=== PATIENT | female | born 1955 | race American Indian/Alaskan Native ===

== ENCOUNTER 2019-08-30 10:38 | Outpatient (CLI) | payer BC ==
[2019-08-30 11:00] LABS: Hematocrit 40.3 % (30.3-42.9); Hemoglobin 12.8 gm/dl (10.1-14.3); Mean Corpuscular HGB Conc 32 % (30-34); Mean Corpuscular Volume 86 fl (79-97); Platelet Count 201 K/mm3 (140-440); Red Blood Count 4.67 M/mm3 (3.65-5.03); Red Cell Distribution Width 15.4 % (13.2-15.2)
[2019-08-30 11:06] LABS: Bacteria,Urine 1+ /HPF (Negative); Bilirubin,Urine NEG (Negative); Blood,Urine NEG (Negative); Color,Urine Straw (Yellow); Protein,Urine <15 mg/dL mg/dL (Negative); Urobilinogen,Urine < 2.0 mg/dL (<2.0)
[2019-08-30 11:15] LABS: Alanine Aminotransferase 35 units/L (7-56); Albumin 4.4 g/dL (3.9-5); BUN/Creatinine Ratio 14; Blood Urea Nitrogen 10 mg/dL (7-17); Calcium 9.2 mg/dL (8.4-10.2); Chol/HDL Ratio 7.02 %; HDL Cholesterol 34 mg/dL (40-59); Hemolysis Index 2; LDL Cholesterol,Direct 195 mg/dL (50-130)
[2019-08-30 12:12] LABS: Basophils % (Manual) 0 % (0.0-1.8); Total Cells Counted 100
[2019-08-30 12:18] LABS: Burr Cells Rare; Platelet Estimate Consistent w Auto
== END 2019-08-30 10:39 | disposition home or self-care (01) ==
LOC: LAB 10:38
PROVIDERS: ATTEND Family Medicine
DX: I10 Essential (primary) hypertension (principal); E11.9 Type 2 diabetes mellitus without complications; Z02.1 Encounter for pre-employment examination; Z90.710 Acquired absence of both cervix and uterus; E78.49 Other hyperlipidemia
CPT/HCPCS: 36415; 80053; 80061; 81001; 83036; 85007; 85025

== ENCOUNTER 2019-09-06 11:25 | Outpatient (CLI) | payer BC ==
--- NOTE | 2019-09-06 15:01 | Cat Scan Report ---
CT ABDOMEN AND PELVIS WITH CONTRAST HISTORY: R10.12 EPIGASTRIC PAIN/K59.09 OTHER CONSTIPATION COMPARISON: None. TECHNIQUE: Axial CT images were obtained through the abdomen and pelvis after 100 cc of Omnipaque 300 intravenously. Sagittal and coronal reformatted images. All CT scans at this location are performed using CT dose reduction for ALARA by means of automated exposure control. FINDINGS: CT ABDOMEN: Lung Bases: Clear. Liver: Mild diffuse fatty infiltration is identified throughout the liver. Biliary: One or 2 tiny calcified gallstones are identified in the gallbladder. No biliary dilatation or inflammation. Spleen: No significant abnormality. Unenlarged. Pancreas: No significant abnormality. Adrenals: No significant abnormality. Kidneys: The left kidney is unremarkable. There are 4 cysts in the right kidney measuring 1 cm, 1 cm, 2 cm and 7.5 cm. Lymphatics: No lymphadenopathy. Vasculature: No significant abnormality. Bowel/Peritoneum: No significant abnormality. No free air. No free fluid. Normal appendix. CT PELVIS: : Hysterectomy changes are suspected. The ovaries are normal. The bladder and distal ureters are wi thin normal limits. Osseous Structures: No significant abnormality. Additional Findings: A small umbilical hernia containing fat is identified. A second small ventral wa ll defect is identified inferior to the umbilicus that also contains fat. IMPRESSION: No acute inflammatory process. Mild hepatic steatosis. Tiny gallstones. Right renal cysts. Small ventral wall defects as described containing fat. Hysterectomy. Signer Name: Srinath Mead Jr, MD Signed: 09/06/2019 2:57 PM Workstation Name: [id number]
== END 2019-09-06 11:26 | disposition home or self-care (01) ==
LOC: CT 11:25
PROVIDERS: ATTEND Family Medicine
DX: K59.09 Other constipation (principal); K76.0 Fatty (change of) liver, not elsewhere classified; N28.1 Cyst of kidney, acquired; K80.20 Calculus of gallbladder without cholecystitis without obstruction
CPT/HCPCS: 74177

== ENCOUNTER 2019-09-13 08:44 | Outpatient (CLI) | payer BC ==
--- NOTE | 2019-09-13 12:53 | Mammography Report ---
DIGITAL SCREENING MAMMOGRAM WITH CAD, 09/13/2019 INDICATION: Routine screening mammography. TECHNIQUE: Digital bilateral 2D mammography was obtained in the craniocaudal and mediolateral obliq ue projections. This examination was interpreted with the benefit of Computer-Aided Detection analysi s. COMPARISON: None available. She has had a previous mammogram at [facility]. FINDINGS: Breast Density: The breasts are heterogeneously dense, which may obscure small masses. There is no evidence of dominant mass, suspicious calcifications or architectural distortion in eithe r breast. IMPRESSION: No mammographic evidence of malignancy. Follow up recommendation: Routine yearly BI-RADS Category 1: Negative. A "normal" or negative report should not discourage follow up or biopsy of a clinically significant f inding. A written summary of these findings will be mailed to the patient. The patient will be entered into a mammography reporting system which will generate a reminder letter for the patient's next appointmen t at the appropriate interval. The [employer] recommends yearly mammograms starting at age 40 and continuing as l alfred as a woman is in good health. Breast MRI is recommended for women with an approximate 20-25% or greater lifetime risk of breast cancer, including women with a strong family history of breast or ova ashli cancer or who have been treated for Hodgkin's disease. Signer Name: Marcello Martínez MD Signed: 09/13/2019 12:49 PM Workstation Name: [id number]
== END 2019-09-13 08:45 | disposition home or self-care (01) ==
LOC: MAMMO 08:44
PROVIDERS: ATTEND Family Medicine
DX: Z12.31 Encounter for screening mammogram for malignant neoplasm of breast (principal)
CPT/HCPCS: 77067

== ENCOUNTER 2019-09-15 09:39 | Outpatient (CLI) | payer BC ==
[2019-09-15] MEDS ORDERED: SINCALIDE 5 MCG VIAL IV ONE ×2 (11:07)
[2019-09-15] MEDS ORDERED: WATER FOR INJ Sterile (PF) 10 ML ONE (11:08)
--- NOTE | 2019-09-15 12:01 | Nuclear Medicine Report ---
HIDA scan INDICATION: PT HAS GALLSTONES TECHNIQUE: 5 mCi of Tc-99m mebrofenin was injected IV per protocol. 0.9 micrograms of CCK was also injected. Multiple planar images in the region of the liver were then obtained. FINDINGS: There is prompt radiotracer uptake identified within the liver. The gallbladder was visuali zed at 30 min. There is normal GI excretion. The gallbladder ejection fraction was measured at 28 % (35% or greater is considered normal). CCK injection caused new abdominal pain IMPRESSION: 1. No evidence of biliary obstruction. 2. Low gallbladder ejection fraction. Signer Name: Unruly De Leon MD Signed: 09/15/2019 11:56 AM Workstation Name: [id number]
== END 2019-09-15 09:40 | disposition home or self-care (01) ==
LOC: NM 09:39
PROVIDERS: ATTEND Family Medicine
DX: K80.80 Other cholelithiasis without obstruction (principal); Z88.5 Allergy status to narcotic agent
CPT/HCPCS: 78227; A9537; J2805

== ENCOUNTER 2019-09-18 08:54 | Day surgery (SDC) | payer BC ==
--- NOTE | 2019-09-18 09:58 | Anesthesia Day of Surgery ---
Anesthesia Day of Surgery - Day of Surgery Patient Examined: Yes Patient H&P Reviewed: Yes Patient is NPO: Yes
--- NOTE | 2019-09-18 09:58 | Anesthesia Consultation ---
Anesthesia Consult and Med Hx Date of service: 09/18/19 - Airway Anesthetic Teeth Evaluation: Good ROM Head & Neck: Adequate Mental/Hyoid Distance: Adequate Mallampati Class: Class II Intubation Access Assessment: Good - Pulmonary Exam CTA: Yes - Cardiac Exam Cardiac Exam: RRR - Pre-Operative Health Status ASA Pre-Surgery Classification: ASA3 Proposed Anesthetic Plan: MAC - Cardiovascular System Hx Hypertension: Yes - Endocrine Hx Non-Insulin Dependent Diabetes: Yes - Additional Comments Anesthesia Medical History Comments: HTN, DM for MAC
[2019-09-18] MEDS ORDERED: SODIUM CHLORIDE 0.9% 1000 ML 1,000 ML IV SCH (10:00)
[2019-09-18] MEDS ORDERED: LIDOCAINE MPF (2%) 20 MG/1 ML VIAL 5 ML ONE (10:30)
[2019-09-18] MEDS ORDERED: PROPOFOL 200 MG/20 ML VIAL IV ONE ×2 (10:59)
--- NOTE | 2019-09-18 11:35 | Operative Report ---
PROCEDURE: Colonoscopy with biopsy. INDICATIONS: This is a 64-year-old -[place]ian female with a prior history of colon polyp, underlying history of diabetes mellitus, hypertension and prior history of hysterectomy. Colonoscopy was done as part of colon polyp screening. Last colonoscopy was done several years ago. DESCRIPTION OF PROCEDURE: The procedure was done after getting informed consent with MAC anesthesia. Initial rectal exam was unremarkable. Instrument was passed through the rectum onto the cecum, which was identified with ileocecal valve and the appendiceal orifice. The terminal ileum was intubated, showed normal mucosa. Visualization was fair, especially in the proximal colon where it was washed with copious amounts of water. No significant pathology was noted in the cecum, ascending colon, transverse colon, descending colon and sigmoid. The cecum was also visualized in the retroverted view. In the rectosigmoid area, there were 2 small possibly hyperplastic polyps noted that were removed by cold biopsy and the rectum also showed some mild to moderate internal hemorrhoid on the retroverted view. ASSESSMENT: Colon polyp screening. Two small rectosigmoid, possibly hyperplastic polyps removed. Mild to moderate internal hemorrhoid. No diverticular disease. There was minimal bleeding from the polypectomy sites and no complications associated with the procedure. The patient will be asked to resume previous home medication and follow up in the office in 1-2 weeks' time and to avoid aspirin and aspirin-related products and anticoagulants for the next 4 days. The procedure was done in the GI lab with assistance of the GI lab team, which included BRUCE Parker and technology consultant and with assistance of anesthesia. JOB# [id number] FRANCY/LETI
--- NOTE | 2019-09-18 11:40 | History and Physical Report ---
HISTORY OF PRESENT ILLNESS: This is a 64-year-old -[place]ian female who has an underlying history of diabetes mellitus, hypertension, and prior history of a hysterectomy. She does have a family history of cancer. The patient's aunt had cancer. She is here for evaluation for as part of colon polyp screening. Last colonoscopy was said to have been 6 years ago. SOCIAL HISTORY: No history of smoking or alcohol use. No cardiac issues. She has had her flu shots. ALLERGIES: She has a history of allergy to CODEINE. MEDICATIONS: Include amlodipine, metformin, glimepiride, Motrin, and milk thistle. PHYSICAL EXAMINATION: VITAL SIGNS: She is afebrile, blood pressure 127/78, pulse is 75, height is 5 feet 1-1/2 inches, weight is 209 pounds. HEENT: Shows no JVD. LUNGS: Clear to auscultation. CARDIOVASCULAR: Normal. ABDOMEN: Soft. Bowel sounds present. NEUROLOGIC: The patient is otherwise alert and oriented. ASSESSMENT: Colon polyp screening; past history of colon polyps; family history of cancer, the patient's aunt has had cancer; diabetes mellitus; hypertension; status post hysterectomy. PLAN: To do a colonoscopy at [facility] on 09/18/2019. JOB# [id number] FRANCY/LETI
[2019-09-18 13:21] VITALS: BP 122/82
--- NOTE | 2019-09-18 13:37 | Post Anesthesia Evaluation ---
- Post Anesthesia Evaluation Patient Participated: Yes Airway Patent: Yes Stable Respiratory Function: Yes Nausea/Vomiting: No Temp > 96.8F: Yes Pain Manageable: Yes Adequeate Hydration: Yes Anesthesia Complications: No Block Receding Appropriately: Not Applicable Patient on Ventilator: No
== END 2019-09-18 08:55 | disposition home or self-care (01) ==
LOC: GIO 08:54
DX: Z12.11 Encounter for screening for malignant neoplasm of colon (principal); D12.7 Benign neoplasm of rectosigmoid junction; K64.8 Other hemorrhoids; I10 Essential (primary) hypertension; E11.9 Type 2 diabetes mellitus without complications; Z90.710 Acquired absence of both cervix and uterus; Z88.5 Allergy status to narcotic agent; Z79.84 Long term (current) use of oral hypoglycemic drugs; Z79.899 Other long term (current) drug therapy
CPT/HCPCS: 45380; 82962; 88305; J2704; J7030

== ENCOUNTER 2019-10-06 09:13 | Emergency (ER) | payer BC, OTHER ==
[2019-10-06 09:23] VITALS: BP 132/80
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
[2019-10-06] MEDS ORDERED: IBUPROFEN 800 MG TAB PO ONE (09:59)
[2019-10-06] MEDS ORDERED: CYCLOBENZAPRINE 10 MG TAB PO ONE (09:59)
== END 2019-10-06 10:34 | disposition home or self-care (01) ==
LOC: ED 09:13
DX: R07.89 Other chest pain (principal); M79.10 Myalgia, unspecified site; I10 Essential (primary) hypertension; E11.9 Type 2 diabetes mellitus without complications; E78.00 Pure hypercholesterolemia, unspecified; Z90.710 Acquired absence of both cervix and uterus; Z79.899 Other long term (current) drug therapy; Z79.84 Long term (current) use of oral hypoglycemic drugs; Z88.5 Allergy status to narcotic agent; V49.49XA Driver injured in collision with other motor vehicles in traffic accident, initial encounter; Y93.89 Activity, other specified; Y92.410 Unspecified street and highway as the place of occurrence of the external cause; Y99.8 Other external cause status

== ENCOUNTER 2020-03-22 11:45 | Outpatient (CLI) | payer BC ==
[2020-03-22 12:16] LABS: Hematocrit 41.6 % (30.3-42.9); Hemoglobin 13.3 gm/dl (10.1-14.3); Mean Corpuscular HGB Conc 32 % (30-34); Mean Corpuscular Volume 85 fl (79-97); Platelet Count 230 K/mm3 (140-440); Red Blood Count 4.92 M/mm3 (3.65-5.03); Red Cell Distribution Width 15.2 % (13.2-15.2)
[2020-03-22 12:25] LABS: Alanine Aminotransferase 35 units/L (7-56); Albumin 4.3 g/dL (3.9-5); BUN/Creatinine Ratio 20; Blood Urea Nitrogen 14 mg/dL (7-17); Calcium 9.4 mg/dL (8.4-10.2); Chol/HDL Ratio 7.09 %; HDL Cholesterol 41 mg/dL (40-59); Hemolysis Index 1; LDL Cholesterol,Direct 231 mg/dL (50-130)
== END 2020-03-22 11:46 | disposition home or self-care (01) ==
LOC: LAB 11:45
PROVIDERS: ATTEND Internal Medicine
DX: E11.9 Type 2 diabetes mellitus without complications (principal)
CPT/HCPCS: 36415; 80053; 80061; 83036; 85027

== ENCOUNTER 2020-03-26 13:49 | Outpatient (CLI) | payer BC ==
--- NOTE | 2020-03-26 14:34 | XRay Report ---
LEFT KNEE 3 VIEWS INDICATION: LEFT KNEE PAIN. COMPARISON: None. IMPRESSION: Normal bone mineralization. Mild to moderate tricompartmental osteoarthritic changes are identified. The medial compartment is most affected. No acute osseous abnormality or soft tissue ab normality is identified. Signer Name: Srinath Mead Jr, MD Signed: 03/26/2020 2:29 PM Workstation Name: [id number]
== END 2020-03-26 13:50 | disposition home or self-care (01) ==
LOC: XRAY 13:49
PROVIDERS: ATTEND Orthopaedic Surgery
DX: M17.12 Unilateral primary osteoarthritis, left knee (principal)

== ENCOUNTER 2020-04-04 11:30 | Outpatient (CLI) | payer BC ==
--- NOTE | 2020-04-04 15:30 | Magnetic Resonance Report ---
MRI RIGHT KNEE WITHOUT CONTRAST INDICATION / CLINICAL INFORMATION: MAIN: RIGHT KNEE PAIN, SWELLING, STIFFNESS. TECHNIQUE: Multiplanar, multisequence MR images were obtained. No contrast used. COMPARISON: None available. FINDINGS: ACL: Mucoid degeneration. The ligament is intact. PCL: No significant abnormality. DISTAL QUADRICEPS TENDON: No significant abnormality. PATELLAR TENDON: No significant abnormality. MEDIAL MENISCUS: Predominantly horizontal tear in the horn of the medial meniscus extending to the ti bial articular surface. The meniscal body is extruded. LATERAL MENISCUS: No significant abnormality. POSTEROLATERAL CORNER: No significant abnormality. MCL: No significant abnormality. LCL: No significant abnormality. DISTAL IT BAND: No significant abnormality. PATELLOFEMORAL ALIGNMENT: - PATELLA JED vs. BAJA: None. - PATELLAR TRANSLATION: Lateral -- Mild. - PATELLAR TILT: Abnormal lateral tilt. - TT-TG DISTANCE: 1.7 cm (normal <= 1.5 cm) - TROCHLEAR DYSPLASIA: None. - FAT PAD EDEMA: None. - MPFL: No significant abnormality. ARTICULAR CARTILAGE: Advanced patellar chondrosis with full-thickness loss across the lateral facet a t the base moderate chondrosis in the tibiofemoral compartments. JOINT SPACE: Small effusion. No significant popliteal cyst. No intra-articular bodies. BONES: No significant bone marrow edema. No fracture. No osseous lesion. There are small femoral, tib ial and patellar osteophytes. SOFT TISSUES: No significant abnormality. ADDITIONAL FINDINGS: None. IMPRESSION: 1. Moderate tricompartmental osteoarthrosis with small osteophytes and a small effusion. 2. Degenerative tear of the posterior horn of the medial meniscus. Report dictated by: Patel Iniguez MD Report dictated on: 04/04/2020 1:54 PM I have reviewed the images, agree with this report, and edited this report as needed. Signer Name: Unruly De Leon MD Signed: 04/04/2020 3:25 PM Workstation Name: [id number]
== END 2020-04-04 11:31 | disposition home or self-care (01) ==
LOC: MRI 11:30
PROVIDERS: ATTEND Orthopaedic Surgery
DX: S83.241A Other tear of medial meniscus, current injury, right knee, initial encounter (principal); M25.461 Effusion, right knee; M25.761 Osteophyte, right knee; M17.11 Unilateral primary osteoarthritis, right knee; X58.XXXA Exposure to other specified factors, initial encounter; Y93.89 Activity, other specified; Y92.89 Other specified places as the place of occurrence of the external cause; Y99.8 Other external cause status
CPT/HCPCS: 73721

== ENCOUNTER 2020-08-27 10:10 | Outpatient (CLI) | payer BC ==
--- NOTE | 2020-08-27 13:19 | Ultrasound Report ---
US renal BILAT INDICATION / CLINICAL INFORMATION: RENAL CYST,RIGHT. COMPARISON: None available. FINDINGS: 3 cysts are seen in the right kidney with the largest measuring 8 cm in diameter. No focal abnormalit y is seen on the left. There is no evidence of hydronephrosis. The bladder is normal. The liver is ec hogenic consistent with diffuse fatty infiltration. IMPRESSION: 1. 3 right renal cysts with the largest measuring 8 cm in diameter. 2. Diffuse fatty infiltration in the liver without focal abnormality Signer Name: Aubrey Brock MD FACR Signed: 08/27/2020 1:14 PM Workstation Name: [id number]
== END 2020-08-27 10:11 | disposition home or self-care (01) ==
LOC: US 10:10
PROVIDERS: ATTEND Family Medicine
DX: N28.1 Cyst of kidney, acquired (principal); K76.0 Fatty (change of) liver, not elsewhere classified
CPT/HCPCS: 76770

== ENCOUNTER 2020-12-12 10:17 | Outpatient (CLI) | payer BC ==
[2020-12-12 12:54] LABS: Basophils % (Auto) 0.5 % (0.0-1.8); Eosinophils # (Auto) 0.2 K/mm3 (0.0-0.4); Eosinophils % (Auto) 3.8 % (0.0-4.3); Hematocrit 41.8 % (30.3-42.9); Hemoglobin 13.4 gm/dl (10.1-14.3); Lymphocytes # (Auto) 1.5 K/mm3 (1.2-5.4); Mean Corpuscular HGB Conc 32 % (30-34); Mean Corpuscular Volume 87 fl (79-97); Monocytes # (Auto) 0.4 K/mm3 (0.0-0.8); Monocytes % (Auto) 8.5 % (0.0-7.3); Platelet Count 198 K/mm3 (140-440); Red Blood Count 4.82 M/mm3 (3.65-5.03); Red Cell Distribution Width 15.1 % (13.2-15.2)
[2020-12-12 13:15] LABS: Alanine Aminotransferase 32 units/L (7-56); Albumin 4.4 g/dL (3.9-5); Blood Urea Nitrogen 7 mg/dL (7-17); Calcium 9.4 mg/dL (8.4-10.2); Chol/HDL Ratio 4.55 %; HDL Cholesterol 40 mg/dL (40-59); Hemolysis Index 5; LDL Cholesterol,Direct 135 mg/dL (50-130)
[2020-12-12 13:17] LABS: BUN/Creatinine Ratio 10
--- NOTE | 2020-12-12 13:26 | XRay Report ---
CERVICAL SPINE 5 VIEWS INDICATION / CLINICAL INFORMATION: CERVICALGIA. COMPARISON: None available. FINDINGS: Mild degenerative change. No other significant skeletal abnormality. Alignment is normal. Signer Name: Aubrey Brock MD FACR Signed: 12/12/2020 1:22 PM Workstation Name: [id number]
--- NOTE | 2020-12-12 13:27 | XRay Report ---
LUMBAR SPINE 5 VIEWS INDICATION / CLINICAL INFORMATION: LOWER BACK PAIN. COMPARISON: None available. FINDINGS: No significant skeletal abnormality. Alignment is normal. Signer Name: Aubrey Brock MD FACCarmen Signed: 12/12/2020 1:23 PM Workstation Name: [id number]
== END 2020-12-12 10:18 | disposition home or self-care (01) ==
LOC: XRAY 10:17
PROVIDERS: ATTEND Orthopaedic Surgery
DX: M47.812 Spondylosis without myelopathy or radiculopathy, cervical region (principal); M54.5 Low back pain
CPT/HCPCS: 36415; 72050; 72110; 80053; 80061; 83036; 84443; 85025

== ENCOUNTER 2021-01-02 09:19 | Day surgery (SDC) | payer BC ==
[2021-01-02 10:54] VITALS: BP 135/89
[2021-01-02] MEDS ORDERED: BUPIVACAINE/PF (0.5%) 5 MG/1 ML 30 ML VIAL INFILTRATI ONE ×2 (11:48→12:45)
[2021-01-02] MEDS ORDERED: LIDOCAINE (1%) 10 MG/1 ML VIAL 20 ML MDV ONE (11:49)
[2021-01-02] MEDS ORDERED: LIDOCAINE (1%) 10 MG/1 ML VIAL 20 ML MDV INFILTRATI ONE (12:46)
--- NOTE | 2021-01-02 14:29 | XRay Report ---
INTRAOPERATIVE FLUOROSCOPY INDICATION / CLINICAL INFORMATION: LT KNEE PAIN. TECHNIQUE: Intraoperative spot images were obtained during the procedure. FINDINGS: Intraoperative fluoroscopy images for left knee injection. See operative/procedure note by performing physician for full details. Fluoroscopy Time: 20 seconds. Fluoroscopy Images: 2. Signer Name: Jose Chandler MD Signed: 01/02/2021 2:25 PM Workstation Name: [id number]
--- NOTE | 2021-01-16 15:09 | Procedure Note ---
Date of procedure: 01/02/21 Pre-op diagnosis: Left knee pain Post-op diagnosis: same Procedure: [Left] Geniculate Nerve Block under C-arm fluroscopy procedure The patient taken to the operating room where he was place on the table supine with padded triangular pad placed along the potileal fossa. The [left] knee prepped and draped in usual sterile fashion. 22-gauge spinal needle used to locate areas for injection, the medial and lateral supracondylar ridges, 2 cm proximal to the superior pole of the patella as well as the medial border of the proximal tibia. These areas were anesthized using lidocaine 1% followed by placement of spinal needle near the medial, and lateral geniculate nerves. A mixture of marcaine and lidocaine injected into the deeper structures. There were no complications noted and he tolerated wel Anesthesia: local Surgeon: ESPERANZA MAYER Estimated blood loss: minimal Pathology: none Condition: stable Disposition: observation
--- NOTE | 2021-01-16 15:13 | Procedure Note ---
Date of procedure: 01/16/21 Pre-op diagnosis: Left knee pain Post-op diagnosis: same Procedure: Geniculate nerve radiofrequency ablation [left] knee Procedure The patient was brought to the OR and placed in the OR table supine position patient was Given IV and was masked the procedure following this the patient's [left] knee was prepped and draped in the routine sterile manner. A timeout procedure was done to identify the patient and the correct operative site. Under C-arm visualization the skin was anesthetized with the 1% lidocaine at both the medial and lateral suprapatellar regions as well as the proximal portion of the medial tibial metaphysis. Following this the the introducers radiofrequency ablator introducer probes were inserted into the distal femoral metaphysis close to the bone and midway along the sagittal plane as well as along the proximal tibial metaphysis to be appropriate place simultaneously following this following this the probe were checked for full motor nerve function there did not appear to be any next the radiofrequency ablator was turned on and the nerves were ablated to a temperature of 60C for approximately 2-1/2 minutes each. A mixture of Depo-Medrol and lidocaine was then injected into each location to help with postoperative pain and inflammation. The patient tolerated the procedure there were no complications he was then taken to postanesthesia recovery in a stable condition Anesthesia: MAC Surgeon: ESPERANZA MAYER Estimated blood loss: minimal Pathology: none Condition: stable Disposition: PACU
== END 2021-01-02 09:20 | disposition home or self-care (01) ==
LOC: OR 09:19
PROVIDERS: ATTEND Orthopaedic Surgery
DX: M25.562 Pain in left knee (principal); G43.909 Migraine, unspecified, not intractable, without status migrainosus; I10 Essential (primary) hypertension; E78.00 Pure hypercholesterolemia, unspecified; K21.9 Gastro-esophageal reflux disease without esophagitis; M19.90 Unspecified osteoarthritis, unspecified site; E11.9 Type 2 diabetes mellitus without complications; Z88.5 Allergy status to narcotic agent; Z79.899 Other long term (current) drug therapy; Z79.84 Long term (current) use of oral hypoglycemic drugs; Z98.49 Cataract extraction status, unspecified eye; Z90.49 Acquired absence of other specified parts of digestive tract; Z90.710 Acquired absence of both cervix and uterus; Z98.890 Other specified postprocedural states
CPT/HCPCS: 82962

== ENCOUNTER 2021-01-16 13:34 | Day surgery (SDC) | payer BC ==
[2021-01-13 09:36] LABS: Hematocrit 40.6 % (30.3-42.9); Hemoglobin 13.1 gm/dl (10.1-14.3); Mean Corpuscular HGB Conc 32 % (30-34); Mean Corpuscular Volume 85 fl (79-97); Platelet Count 185 K/mm3 (140-440); Red Blood Count 4.76 M/mm3 (3.65-5.03); Red Cell Distribution Width 15.5 % (13.2-15.2)
[2021-01-13 09:52] LABS: BUN/Creatinine Ratio 13; Blood Urea Nitrogen 8 mg/dL (7-17); Calcium 9.4 mg/dL (8.4-10.2); Hemolysis Index 0
--- NOTE | 2021-01-16 09:36 | Anesthesia Day of Surgery ---
Anesthesia Day of Surgery - Day of Surgery Patient Examined: Yes Patient H&P Reviewed: Yes Patient is NPO: Yes
--- NOTE | 2021-01-16 09:36 | Anesthesia Consultation ---
Anesthesia Consult and Med Hx Date of service: 01/16/21 - Airway Anesthetic Teeth Evaluation: Good ROM Head & Neck: Adequate Mental/Hyoid Distance: Adequate Mallampati Class: Class III Intubation Access Assessment: Possibly Difficult - Pre-Operative Health Status ASA Pre-Surgery Classification: ASA2 Proposed Anesthetic Plan: General - Pulmonary Hx Smoking: Yes (1/2PPPD) Hx Respiratory Symptoms: No - Cardiovascular System Hx Hypertension: No (previously on antihypertensives for raynauds; self d/c'd meds) - Central Nervous System CVA: No Hx Back Pain: Yes - Endocrine Hx Renal Disease: No Hx Liver Disease: No Hx Insulin Dependent Diabetes: No Hx Non-Insulin Dependent Diabetes: No Hx Thyroid Disease: No - Other Systems Hx Obesity: Yes (BMI 38) - Additional Comments Anesthesia Medical History Comments: No hx anesthetic complications.
--- NOTE | 2021-01-16 12:55 | Anesthesia Consultation ---
Anesthesia Consult and Med Hx Date of service: 01/16/21 - Airway Anesthetic Teeth Evaluation: Poor (#6 loose), Partials ROM Head & Neck: Adequate Mental/Hyoid Distance: Adequate Mallampati Class: Class III Intubation Access Assessment: Possibly Difficult - Pre-Operative Health Status ASA Pre-Surgery Classification: ASA3 Proposed Anesthetic Plan: MAC - Pulmonary Hx Smoking: No Hx Respiratory Symptoms: No Hx Pneumonia: Yes (remote hx PNA with L lung scarring) Hx Sleep Apnea: No (no dx but patient suspects SREE) - Cardiovascular System Hx Hypertension: Yes Hx Heart Attack/AMI: No Hx Percutaneous Transluminal Coronary Angioplasty (PTCA): No - Central Nervous System CVA: No Hx Back Pain: Yes - Endocrine Hx Renal Disease: No Hx Liver Disease: No Hx Non-Insulin Dependent Diabetes: Yes Hx Thyroid Disease: No - Other Systems Hx Obesity: Yes (BMI 38)
--- NOTE | 2021-01-16 12:56 | Anesthesia Day of Surgery ---
Anesthesia Day of Surgery - Day of Surgery Patient Examined: Yes Patient H&P Reviewed: Yes Patient is NPO: Yes
[~2021-01-16 13:34] MED LIST: HYDROcodone/ACETAMINOPHEN 5-325 MG TAB PO PRN; LACTATED RINGERS 1,000 ML IV SCH; MIDAZOLAM 2 MG/2 ML INJ IV NR; ONDANSETRON 4 MG/2 ML INJ IV PRN; fentaNYL 100 MCG/2 ML INJ IV PRN
[2021-01-16] MEDS ORDERED: LIDOCAINE MPF (2%) 20 MG/1 ML VIAL 5 ML ONE (14:03)
[2021-01-16] MEDS ORDERED: ONDANSETRON 4 MG/2 ML INJ ONE (14:03)
[2021-01-16] MEDS ORDERED: fentaNYL 100 MCG/2 ML INJ ONE (14:04)
[2021-01-16] MEDS ORDERED: propofoL 200 MG/20 ML VIAL IV ONE ×2 (14:04→14:42)
[2021-01-16] MEDS ORDERED: BUPIVACAINE/PF (0.5%) 5 MG/1 ML 30 ML VIAL INFILTRATI ONE (14:07)
[2021-01-16] MEDS ORDERED: LIDOCAINE (1%) 10 MG/1 ML VIAL 20 ML MDV ONE (14:07)
[2021-01-16] MEDS ORDERED: methylPREDNISolone ACETATE 40 MG/1 ML INJ ONE ×2 (14:08→14:50)
[2021-01-16] MEDS ORDERED: KETAMINE/STERILE WATER 50 MG/ML SYRINGE ONE (14:25)
[2021-01-16] MEDS ORDERED: LIDOCAINE (1%) 10 MG/1 ML VIAL 20 ML MDV INFILTRATI ONE (14:44)
[2021-01-16] MEDS ORDERED: BUPIVACAINE/PF (0.25%) 2.5 MG/ML 30 ML VIAL INFILTRATI ONE ×2 (14:52→14:56)
[2021-01-16] MEDS ORDERED: methylPREDNISolone ACETATE 40 MG/1 ML INJ INTRA-ARTI ONE ×2 (14:52→14:57)
[2021-01-16] MEDS ORDERED: ALBUTEROL 2.5 MG/3 ML NEBU IH ONE ×2 (15:26→15:28)
[2021-01-16] MEDS ORDERED: SODIUM CHLORIDE FOR INHALATION NEBU 3 ML ONE (15:26)
--- NOTE | 2021-01-16 15:45 | XRay Report ---
LEFT KNEE 3 VIEWS 1330 INDICATION: Intraoperative COMPARISON: 01/02/2021 FINDINGS: 3 C-arm views are presented during a knee injection showing needles medially and laterally at the level of the distal femoral metaphysis and another just medial to the proximal tibial metaphys is, all with anterior entry. A subsequent image shows a needle projecting over the midportion of the distal femoral diaphysis and the lateral thigh needle is still in place. Fluoroscopy time: 23 seconds Signer Name: Terry Lechuga MD Signed: 01/16/2021 3:40 PM Workstation Name: [email or web address]
[2021-01-16 16:13] VITALS: BP 130/71
[2021-01-16] MEDS ORDERED: HYDROcodone/ACETAMINOPHEN 5-325 MG TAB PO PRN (16:20)
--- NOTE | 2021-01-16 16:35 | Post Anesthesia Evaluation ---
- Post Anesthesia Evaluation Patient Participated: Yes Airway Patent: Yes Stable Respiratory Function: Yes Nausea/Vomiting: No Temp > 96.8F: Yes Pain Manageable: Yes Adequeate Hydration: Yes Anesthesia Complications: No Other Comments: Coughing on arrival to PACU with normal SpO2. Resolved with albuterol neb.
== END 2021-01-16 16:50 | disposition home or self-care (01) ==
LOC: MERGE 13:34 → OR 13:34
PROVIDERS: ATTEND Orthopaedic Surgery
DX: M25.562 Pain in left knee (principal); Z20.822 Contact with and (suspected) exposure to COVID-19; E78.00 Pure hypercholesterolemia, unspecified; I10 Essential (primary) hypertension; K21.9 Gastro-esophageal reflux disease without esophagitis; M19.90 Unspecified osteoarthritis, unspecified site; E11.9 Type 2 diabetes mellitus without complications; Z98.890 Other specified postprocedural states; Z79.899 Other long term (current) drug therapy; Z88.5 Allergy status to narcotic agent; Z79.84 Long term (current) use of oral hypoglycemic drugs; Z98.49 Cataract extraction status, unspecified eye; Z87.01 Personal history of pneumonia (recurrent); Z90.49 Acquired absence of other specified parts of digestive tract; Z90.710 Acquired absence of both cervix and uterus; Z87.440 Personal history of urinary (tract) infections
CPT/HCPCS: 36415; 64624; 73560; 80048; 82962; 85027; A4649; J1030; J2250; J2405; J2704; J3010; J3490; J7120; U0003

== ENCOUNTER 2021-03-16 12:55 | Emergency (ER) | payer BC ==
--- NOTE | 2021-03-16 14:56 | Event Note ---
ED Screening Note Date of service: 03/16/21 Time: 14:55 ED Screening Note: 66-year-old female presents to the ER today with complaints of right flank pain with associated nausea and vomiting. Onset last night. Past medical history significant for diabetes, hypertension, hyperlipidemia left ventricular hypertrophy, migraines This initial assessment/diagnostic orders/clinical plan/treatment(s) is/are subject to change based on patients health status, clinical progression and re- assessment by fellow clinical providers in the ED. Further treatment and workup at subsequent clinical providers discretion. Patient/guardian urged not to elope from the ED as their condition may be serious if not clinically assessed and managed. Initial orders include: Abdominal pain order set
[2021-03-16 15:51] LABS: Basophils % (Auto) 0.5 % (0.0-1.8); Eosinophils % (Auto) 0.2 % (0.0-4.3); Hematocrit 40.1 % (30.3-42.9); Lymphocytes # (Auto) 2.7 K/mm3 (1.2-5.4); Lymphocytes % (Auto) 29.9 % (13.4-35.0); Mean Corpuscular HGB Conc 33 % (30-34); Mean Corpuscular Volume 86 fl (79-97); Monocytes # (Auto) 0.4 K/mm3 (0.0-0.8); Monocytes % (Auto) 4.5 % (0.0-7.3); Platelet Count 216 K/mm3 (140-440); Red Blood Count 4.65 M/mm3 (3.65-5.03); Red Cell Distribution Width 15.3 % (13.2-15.2)
[2021-03-16 15:57] LABS: Bilirubin,Urine NEG (Negative); Blood,Urine NEG (Negative); Color,Urine Yellow (Yellow); Mucus,Urine FEW /HPF; Protein,Urine <15 mg/dL mg/dL (Negative); Urobilinogen,Urine < 2.0 mg/dL (<2.0)
[2021-03-16 16:16] LABS: Alanine Aminotransferase 26 units/L (7-56); Albumin 4.4 g/dL (3.9-5); BUN/Creatinine Ratio 13; Blood Urea Nitrogen 8 mg/dL (7-17); Calcium 9.1 mg/dL (8.4-10.2); Hemolysis Index 3
[2021-03-16] MEDS ORDERED: ACETAMINOPHEN 500 MG TAB PO ONE (19:03)
[2021-03-16] MEDS ORDERED: KETOROLAC 30 MG/1 ML INJ IM ONE (23:58)
--- NOTE | 2021-03-17 00:01 | Emergency Department Report ---
HPI - General Chief Complaint: Abdominal Pain Time Seen by Provider: 03/16/21 14:30 - HPI HPI: This is a 66-year-old -Citizen Of [place] female presents to the emergency department with a complaint of right flank and right middle to lower back pain that has been going on since last night. At one point the patient says that the pain was so intense that it caused her to have some vomiting. She denies any current nausea. She has taken multiple doses of Tylenol for her symptoms without any relief. At the time of my examination she says the pain is 5 out of 10 in intensity. It does worsen with certain movements of her body/torso. No known alleviating factors. She admits to some increased urination but denies any dysuria. She denies any fever, vaginal bleeding or discharge, constipation or diarrhea, rash, chest pain or shortness of breath. No recent travel or sick contacts at home. She has a past medical history that includes hypertension, diabetes, migraines, renal cysts and high cholesterol. Her primary care physician is a Dr. Elkins, but she has not seen them regarding her current symptoms. ED Past Medical Hx - Past Medical History Previous Medical History?: Yes Hx Hypertension: Yes Hx Heart Attack/AMI: No Hx Congestive Heart Failure: No (HX LV HYPERTROPHY) Hx Diabetes: Yes Hx GERD: Yes Hx Liver Disease: No Hx Renal Disease: Yes (Renal cysts) Hx Sickle Cell Disease: No Hx Arthritis: Yes (RT KNEE) Hx Headaches / Migraines: Yes (MIGRAINES) Hx Seizures: No Hx Kidney Stones: No Hx Asthma: No Hx COPD: No Hx Tuberculosis: No Hx HIV: No Additional medical history: L ventricular hypertrophy, high cholesterol - Surgical History Past Surgical History?: Yes Hx Pacemaker: No Hx Internal Defibrillator: No Hx Cholecystectomy: Yes Additional Surgical History: hysterectomy 2004, foot - Social History Smoking Status: Never Smoker Substance Use Type: None - Medications Home Medications: Home Medications Medication Instructions Recorded Confirmed Last Taken Type amLODIPine 10 mg PO DAILY 11/26/14 12/30/20 10/22/19 20:00 History metFORMIN [Glucophage] 1,000 mg PO BID 11/26/14 12/30/20 10/22/19 20:00 History Glimepiride [Amaryl] 1 mg PO QAM 10/19/19 12/30/20 10/22/19 20:00 History Milk Thistle Seed Extract [Milk 1 tab PO DAILY 10/19/19 12/30/20 10/16/19 09:00 History Thistle] Ubidecarenone [Coq-10] 100 mg PO DAILY 10/19/19 12/30/20 10/21/19 09:00 History Azo Bladder Control Capsule 1 cap PO DAILY 12/27/20 12/27/20 Unknown History Calcium Carb/D3/Magnesium/Zinc [Sv 1 tab PO DAILY 12/27/20 12/27/20 Unknown History Tfvkrop-Iuu-Kvlo-Vit D Cplt] Cod Liver Oil 1 each PO DAILY 12/27/20 12/27/20 Unknown History Ibuprofen [Motrin 800 MG tab] 800 mg PO BID PRN 12/27/20 12/30/20 Unknown History Rosuvastatin Calcium [Crestor] 10 mg PO DAILY 12/27/20 12/27/20 Unknown History Calcium Carb/D3/Magnesium/Zinc [Sv 1 each PO DAILY 01/10/21 01/10/21 Unknown Hi story Tupezlz-Ifa-Xegd-Vit D Cplt] Cod Liver Oil 1 each PO DAILY 01/10/21 01/10/21 Unknown History Glimepiride [Amaryl] 1 mg PO QAM 01/10/21 01/10/21 Unknown History Milk Thistle Seed Extract [Milk 1 tab PO DAILY 01/10/21 01/10/21 Unknown History Thistle Extract] Pumpkin Seed Extract/Soy Germ [Azo 300 mg PO DAILY 01/10/21 01/10/21 Unknown History Bladder Control Capsule] Rosuvastatin Calcium [Crestor] 10 mg PO HS 01/10/21 01/10/21 Unknown History Ubidecarenone [Co Q-10] 100 mg PO DAILY 01/10/21 01/10/21 Unknown History amLODIPine [Norvasc] 10 mg PO DAILY 01/10/21 01/10/21 Unknown History metFORMIN [Glucophage] 500 mg PO BID 01/10/21 01/10/21 Unknown History HYDROcodone/APAP 5-325 [[place] 1 each PO Q6HR PRN #20 tablet 01/16/21 Unknown Rx 5-325 mg TAB] Cyclobenzaprine HCl [Flexeril 5 MG 5 mg PO TID PRN #12 tab 03/17/21 Unknown Rx TAB] ED Review of Systems ROS: Stated complaint: RIGHT SIDE BACK PAIN Other details as noted in HPI Comment: All other systems reviewed and negative Constitutional: denies: chills, fever Eyes: denies: eye pain, vision change ENT: denies: ear pain, throat pain Respiratory: denies: cough, shortness of breath Cardiovascular: denies: chest pain, palpitations Gastrointestinal: abdominal pain (Right flank pain), vomiting Genitourinary: frequency. denies: dysuria, discharge Musculoskeletal: back pain. denies: arthralgia Skin: denies: rash, lesions Neurological: denies: headache, weakness Physical Exam - Physical Exam Vital Signs: Vital Signs 03/16/21 14:52 Temperature 98.6 F Pulse Rate 78 Respiratory 20 Rate Blood Pressure 156/80 O2 Sat by Pulse 99 Oximetry Physical Exam: GENERAL: The patient is well-developed well-nourished. HENT: Normocephalic. Atraumatic. Patient has moist mucous membranes. EYES: Extraocular motions are intact. NECK: Supple. Trachea is midline. CHEST/LUNGS: Clear to auscultation. There is no respiratory distress noted. HEART/CARDIOVASCULAR: Regular. There is no tachycardia. There is no murmur. ABDOMEN: Abdomen is soft, nontender. Unable to reproduce flank pain to palpation. No guarding. Patient has normal bowel sounds. There is no abdominal distention. SKIN: Skin is warm and dry. NEURO: The patient is awake, alert, and oriented. The patient is cooperative. The patient has no focal neurologic deficits. Normal speech. MUSCULOSKELETAL: There is no tenderness or deformity. There is no limitation range of motion. BACK: Positive right-sided CVA tenderness to palpation. ED Course Vital Signs 03/16/21 14:52 Temperature 98.6 F Pulse Rate 78 Respiratory 20 Rate Blood Pressure 156/80 O2 Sat by Pulse 99 Oximetry ED Medical Decision Making - Lab Data Result diagrams: 03/16/21 15:09 03/16/21 15:09 Lab Results 03/16/21 03/16/21 03/16/21 Range/Units 15:08 15:09 15:09 WBC 9.0 (4.5-11.0) K/mm3 RBC 4.65 (3.65-5.03) M/mm3 Hgb 13.0 (10.1-14.3) gm/dl Hct 40.1 (30.3-42.9) % MCV 86 (79-97) fl MCH 28 (28-32) pg MCHC 33 (30-34) % RDW 15.3 H (13.2-15.2) % Plt Count 216 (140-440) K/mm3 Lymph % (Auto) 29.9 (13.4-35.0) % [place] % (Auto) 4.5 (0.0-7.3) % Eos % (Auto) 0.2 (0.0-4.3) % Baso % (Auto) 0.5 (0.0-1.8) % Lymph # (Auto) 2.7 (1.2-5.4) K/mm3 [place] # (Auto) 0.4 (0.0-0.8) K/mm3 Eos # (Auto) 0.0 (0.0-0.4) K/mm3 Baso # (Auto) 0.0 (0.0-0.1) K/mm3 Seg Neutrophils % 64.9 (40.0-70.0) % Seg Neutrophils # 5.8 (1.8-7.7) K/mm3 Sodium 136 L (137-145) mmol/L Potassium 3.5 L (3.6-5.0) mmol/L Chloride 98.0 (98-107) mmol/L Carbon Dioxide 26 (22-30) mmol/L Anion Gap 16 mmol/L BUN 8 (7-17) mg/dL Creatinine 0.6 (0.6-1.2) mg/dL Estimated GFR > 60 ml/min BUN/Creatinine Ratio 13 % Glucose 106 H (65-100) mg/dL Calcium 9.1 (8.4-10.2) mg/dL Magnesium (1.7-2.3) mg/dL Total Bilirubin 0.30 (0.1-1.2) mg/dL AST 26 (5-40) units/L ALT 26 (7-56) units/L Alkaline Phosphatase 42 (35-129) units/L Total Protein 8.5 H (6.3-8.2) g/dL Albumin 4.4 (3.9-5) g/dL Albumin/Globulin Ratio 1.1 % Lipase 37 (13-60) units/L Urine Color Yellow (Yellow) Urine Turbidity Clear (Clear) Urine pH 8.0 H (5.0-7.0) Ur Specific [place] 1.018 (1.003-1.030) Urine Protein <15 mg/dl (Negative) mg/dL Urine Glucose (UA) Neg (Negative) mg/dL Urine Ketones Neg (Negative) mg/dL Urine Blood Neg (Negative) Urine Nitrite Neg (Negative) Urine Bilirubin Neg (Negative) Urine Urobilinogen < 2.0 (<2.0) mg/dL Ur Leukocyte Esterase Neg (Negative) Urine WBC (Auto) 2.0 (0.0-6.0) /HPF Urine RBC (Auto) 1.0 (0.0-6.0) /HPF U Epithel Cells (Auto) < 1.0 (0-13.0) /HPF Urine Mucus Few /HPF 03/16/21 Range/Units 15:09 WBC (4.5-11.0) K/mm3 RBC (3.65-5.03) M/mm3 Hgb (10.1-14.3) gm/dl Hct (30.3-42.9) % MCV (79-97) fl MCH (28-32) pg MCHC (30-34) % RDW (13.2-15.2) % Plt Count (140-440) K/mm3 Lymph % (Auto) (13.4-35.0) % [place] % (Auto) (0.0-7.3) % Eos % (Auto) (0.0-4.3) % Baso % (Auto) (0.0-1.8) % Lymph # (Auto) (1.2-5.4) K/mm3 [place] # (Auto) (0.0-0.8) K/mm3 Eos # (Auto) (0.0-0.4) K/mm3 Baso # (Auto) (0.0-0.1) K/mm3 Seg Neutrophils % (40.0-70.0) % Seg Neutrophils # (1.8-7.7) K/mm3 Sodium (137-145) mmol/L Potassium (3.6-5.0) mmol/L Chloride (98-107) mmol/L Carbon Dioxide (22-30) mmol/L Anion Gap mmol/L BUN (7-17) mg/dL Creatinine (0.6-1.2) mg/dL Estimated GFR ml/min BUN/Creatinine Ratio % Glucose (65-100) mg/dL Calcium (8.4-10.2) mg/dL Magnesium 1.80 (1.7-2.3) mg/dL Total Bilirubin (0.1-1.2) mg/dL AST (5-40) units/L ALT (7-56) units/L Alkaline Phosphatase (35-129) units/L Total Protein (6.3-8.2) g/dL Albumin (3.9-5) g/dL Albumin/Globulin Ratio % Lipase (13-60) units/L Urine Color (Yellow) Urine Turbidity (Clear) Urine pH (5.0-7.0) Ur Specific [place] (1.003-1.030) Urine Protein (Negative) mg/dL Urine Glucose (UA) (Negative) mg/dL Urine Ketones (Negative) mg/dL Urine Blood (Negative) Urine Nitrite (Negative) Urine Bilirubin (Negative) Urine Urobilinogen (<2.0) mg/dL Ur Leukocyte Esterase (Negative) Urine WBC (Auto) (0.0-6.0) /HPF Urine RBC (Auto) (0.0-6.0) /HPF U Epithel Cells (Auto) (0-13.0) /HPF Urine Mucus /HPF - Radiology Data Radiology results: report reviewed CT ABDOMEN AND PELVIS WITHOUT CONTRAST INDICATION: right flank pain to back CONTRAST: Without IV COMPARISON: 09/06/[address] scans at this location are performed using CT dose reduction for ALARA by means of automated exposure control. NOTE: Resolution is decreased and artifact is introduced by the patient's size. FINDINGS: Lung bases are clear. Small hiatal hernia is noted. Fatty attrition of the liver is seen with mild enlargement but without obvious focal lesion. Spleen is not enlarged. Gallbladder is been removed. No biliary dilatation is seen. Right renal cysts are again noted. No urinary tract calculi or evidence of obstruction are seen. No free fluid is noted. No inflammatory changes are seen. No evidence of bowel obstruction is noted. Appendix appears within normal limits. Small fatty umbilical hernia is seen. IMPRESSION: No acute abnormalities are seen - Medical Decision Making This patient presents to the emergency department with complaint of right-sided flank pain and some pain to the right middle to lower back. On examination th ere is no abdominal tenderness to palpation. Unable to reproduce the flank pain. There is some mild right-sided CVA tenderness to palpation. Patient's labs have been unremarkable including CBC, metabolic panel, lipase and urinalysis. She had a CT scan of the abdomen and pelvis that did not show any nephrolithiasis, cholecystitis, cholelithiasis, or any other acute process. She was given a dose of Toradol and upon reevaluation says she is feeling improved. This could be musculoskeletal in etiology. However, the patient does not appear to have any life-threatening medical or surgical condition at this time that requires admission. She has been instructed to follow-up with her primary care physician in the next few days. She will return to the emergency department with any worsening of her symptoms or with any acute distress. Critical Care Time: No Critical care attestation.: If time is entered above; I have spent that time in minutes in the direct care of this critically ill patient, excluding procedure time. ED Disposition Clinical Impression: Right flank pain Back pain Qualifiers: Back pain location: back pain in unspecified location Chronicity: unspecified Back pain laterality: right Qualified Code(s): M54.9 - Dorsalgia, unspecified Disposition: DC- TO HOME OR SELFCARE Is pt being admited?: No Condition: Stable Instructions: Acute Back Pain, Adult, Flank Pain, Adult, Pain Without a Known Cause, Abdominal Pain (ED) Additional Instructions: Please follow-up with your primary care physician in the next few days. You have been prescribed a medication that is sedating and therefore should not be taken prior to driving, working, and responsible for children and in no way should be mixed with alcohol of any quantity. Return to the emergency department with any worsening of your symptoms, new or concerning symptoms not addressed during this current emergency department visit, or with any acute distress. Prescriptions: Cyclobenzaprine HCl [Flexeril 5 MG TAB] 5 mg PO TID PRN #12 tab PRN Reason: Muscle Spasm Referrals: BRISEIDA ELKINS MD [Primary Care Provider] - 2-3 Days Forms: Work/School Release Form(ED) Time of Disposition: 01:52
[2021-03-17 00:02] VITALS: BP 143/87
--- NOTE | 2021-03-17 01:19 | Cat Scan Report ---
CT ABDOMEN AND PELVIS WITHOUT CONTRAST INDICATION: right flank pain to back CONTRAST: Without IV COMPARISON: 09/06/[address] scans at this location are performed using CT dose reduction for ALARA by means of automated e xposure control. NOTE: Resolution is decreased and artifact is introduced by the patient's size. FINDINGS: Lung bases are clear. Small hiatal hernia is noted. Fatty attrition of the liver is seen wi th mild enlargement but without obvious focal lesion. Spleen is not enlarged. Gallbladder is been rem noe. No biliary dilatation is seen. Right renal cysts are again noted. No urinary tract calculi or e vidence of obstruction are seen. No free fluid is noted. No inflammatory changes are seen. No evidenc e of bowel obstruction is noted. Appendix appears within normal limits. Small fatty umbilical hernia is seen. IMPRESSION: No acute abnormalities are seen Signer Name: Terry Lechuga MD Signed: 03/17/2021 1:15 AM Workstation Name: [id number]
== END 2021-03-17 02:02 | disposition home or self-care (01) ==
LOC: ED 12:55
DX: R10.9 Unspecified abdominal pain (principal); M54.5 Low back pain; R11.10 Vomiting, unspecified; I10 Essential (primary) hypertension; E11.9 Type 2 diabetes mellitus without complications; K21.9 Gastro-esophageal reflux disease without esophagitis; G43.909 Migraine, unspecified, not intractable, without status migrainosus; M19.90 Unspecified osteoarthritis, unspecified site; Z90.49 Acquired absence of other specified parts of digestive tract; Z90.710 Acquired absence of both cervix and uterus; Z98.890 Other specified postprocedural states; Z88.5 Allergy status to narcotic agent; Z88.6 Allergy status to analgesic agent; Z79.899 Other long term (current) drug therapy
CPT/HCPCS: 36415; 74176; 80053; 81001; 83690; 83735; 85025; 96372; 99284; J1885

== ENCOUNTER 2021-06-24 13:59 | Outpatient (CLI) | payer BC ==
[2021-06-24 14:18] LABS: Basophils # (Auto) 0.1 K/mm3 (0.0-0.1); Basophils % (Auto) 1.4 % (0.0-1.8); Eosinophils # (Auto) 0.1 K/mm3 (0.0-0.4); Eosinophils % (Auto) 0.8 % (0.0-4.3); Hemoglobin 13.1 gm/dl (10.1-14.3); Lymphocytes # (Auto) 2.9 K/mm3 (1.2-5.4); Lymphocytes % (Auto) 39.5 % (13.4-35.0); Mean Corpuscular HGB Conc 32 % (30-34); Mean Corpuscular Volume 86 fl (79-97); Monocytes # (Auto) 0.3 K/mm3 (0.0-0.8); Monocytes % (Auto) 4.7 % (0.0-7.3); Platelet Count 176 K/mm3 (140-440); Red Blood Count 4.79 M/mm3 (3.65-5.03); Red Cell Distribution Width 15.3 % (13.2-15.2)
[2021-06-24 14:56] LABS: Alanine Aminotransferase 30 units/L (7-56); Albumin 4.3 g/dL (3.9-5); Blood Urea Nitrogen 9 mg/dL (7-17); Chol/HDL Ratio 3.21 %; HDL Cholesterol 41 mg/dL (40-59); Hemolysis Index 4; LDL Cholesterol,Direct 77 mg/dL (50-130)
[2021-06-24 15:06] LABS: BUN/Creatinine Ratio 15
== END 2021-06-24 14:00 | disposition home or self-care (01) ==
LOC: LAB 13:59
PROVIDERS: ATTEND Family Medicine
DX: E11.9 Type 2 diabetes mellitus without complications (principal)
CPT/HCPCS: 36415; 80053; 80061; 83036; 84443; 85025